=== PATIENT | male | born 1950 | race Caucasian/White ===

== ENCOUNTER 2016-03-20 14:46 | Inpatient (IN) | payer MEDICARE ==
[~2016-03-20] VITALS: Ht 160 cm; Wt 47.3 kg
[~2016-03-20 14:46] MED LIST: ALBU0.63 NEB; ASPI-482 PO; ATOR10TA60 PO; DOCU-27 PO; GLIM2TAB2 PO; HYDR-2666 PO; METF10002 PO
--- NOTE | 2016-03-20 18:01 | PHYS DOC ---
Past Medical History Past Medical History: Cancer, CVA, Diabetes-Type II Additional Past Medical Histor: L lung mass, 1 card stent, prostate CA, sepsis Past Surgical History: Cancer Surgery, Cholecystectomy, Other Additional Past Surgical Histo: prostate Alcohol Use: None Drug Use: None Adult General Chief Complaint Chief Complaint: SHORTNESS OF BREATH HPI HPI Patient is a 65 year old with left lung cancer presents complaining of increasing shortness of breath for 3 days, generalized weakness, dizziness/ lightheadedness, and dehydration. He has been experiencing failure to thrive for weeks. He is not eating or drinking much, and frequently has to go in for outpatient visits for IV fluids. He has been losing weight as well. He reports a nonproductive cough. He denies fever. He has intermittent left- sided chest pains which she attributes to the lung mass. These have been going on for a while now. He denies abdominal pain, vomiting, diarrhea, bloody stools , or urinary complaints. No calf swelling or leg tenderness. Patient's last chemotherapy and radiation treatments were in late February 2016. Review of Systems Review of Systems Constitutional: Denies fever or chills. Reports generalized weakness and failure to thrive. Eyes: Denies change in visual acuity, redness, or eye pain HENT: Denies nasal congestion or sore throat Respiratory: Reports cough and shortness of breath. Cardiovascular: Denies chest pain currently. Has had intermittent left-sided chest pains for a while now due to his lung cancer. GI: Denies abdominal pain, nausea, vomiting, bloody stools or diarrhea : Denies dysuria or hematuria Musculoskeletal: Denies back pain or joint pain Integument: Denies rash or skin lesions Neurologic: Denies headache, focal weakness or sensory changes Current Medications Current Medications Current Medications Medications (Trade) Dose Ordered Sig/Abi Start Time Stop Time Status Last Admin Dose Admin Albuterol/ Ipratropium (Duoneb) 3 ml RTQID 03/20/16 20:00 03/21/16 19:59 UNV Ceftriaxone Sodium 1 gm/ Sodium Chloride 50 ml @ 100 mls/hr Q24H 03/21/16 20:00 Ceftriaxone Sodium (Rocephin 1gm Ivpb For Omni) 50 ml @ 100 mls/hr 1X ONCE 03/20/16 19:15 03/20/16 19:44 DC 03/20/16 19:15 100 MLS/HR Info (Do NOT chart on this entry -- for MONITORING) 1 each PRN DAILY PRN 03/20/16 19:30 03/22/16 19:29 Iohexol (Omnipaque 300 Mg/ml) 75 ml 1X ONCE 03/20/16 19:15 03/20/16 19:19 DC 03/20/16 19:22 75 ML Ondansetron HCl 4 mg 4 mg PRN Q8HRS PRN 03/20/16 20:00 03/21/16 19:59 UNV Sodium Chloride (Iv Sodium Chloride 0.9% 1000ml Bag) 1,000 ml @ 150 mls/hr Q6H40M 03/20/16 19:47 03/21/16 19:46 UNV Allergies Allergies Allergies Coded Allergies Type Severity Reaction Last Updated Verified I S O L A T I O N *CONTACT* Allergy Unknown 11/28/15 Yes No Known Medication Allergies Allergy Unknown 11/28/15 Yes Physical Exam Physical Exam Constitutional: Cachectic. No acute distress. Nontoxic appearance. HENT: Normocephalic, atraumatic, bilateral external ears normal, oropharynx moist, no oral exudates, nose normal. Eyes: PERRLA, EOMI, conjunctiva normal, no discharge. Neck: Normal range of motion, no tenderness, supple, no stridor. Cardiovascular:Heart rate regular rhythm, no murmur Lungs & Thorax: Mild crackles in the left mid and lower lung field. No wheezes. No respiratory distress. Abdomen: Bowel sounds normal, soft, no tenderness, no masses, no pulsatile masses. Skin: Warm, dry, no erythema, no rash. Back: No tenderness, no CVA tenderness. Extremities: No tenderness, no cyanosis, no clubbing, ROM intact, no edema. Neurologic: Alert and oriented X 3, normal motor function. Psychologic: Affect normal, judgement normal, mood normal. Current Patient Data Vital Signs Vital Signs Date Time Temp Pulse Resp B/P Pulse Ox O2 Delivery O2 Flow Rate FiO2 03/20/16 17:01 97.5 87 28 105/61 97 Room Air 97.5 Lab Values Laboratory Tests Test 03/20/16 17:40 03/20/16 19:15 White Blood Count 1.8x10^3/uL (4.0-11.0) *L Red Blood Count 2.49x10^6/uL (4.30-5.70) L Hemoglobin 7.5g/dL (13.0-17.5) L Hematocrit 22.9% (39.0-53.0) L Mean Corpuscular Volume 92fL (79-100) Mean Corpuscular Hemoglobin 30pg (25-35) Mean Corpuscular Hemoglobin Concent 33g/dL (31-37) Red Cell Distribution Width 21.9% (11.5-14.5) H Platelet Count 209x10^3/uL (140-400) Neutrophils (%) (Auto) 65% (31-73) Lymphocytes (%) (Auto) 11% (24-48) L Monocytes (%) (Auto) 15% (0-9) H Eosinophils (%) (Auto) 9% (0-3) H Basophils (%) (Auto) 1% (0-3) Neutrophils # (Auto) 1.2x10^3uL (1.8-7.7) L Lymphocytes # (Auto) 0.2x10^3/uL (1.0-4.8) L Monocytes # (Auto) 0.3x10^3/uL (0.0-1.1) Eosinophils # (Auto) 0.2x10^3/uL (0.0-0.7) Basophils # (Auto) 0.0x10^3/uL (0.0-0.2) Segmented Neutrophils % 58% (35-66) Band Neutrophils % 10% (0-9) H Lymphocytes % 12% (24-48) L Monocytes % 15% (0-10) H Eosinophils % 5% (0-5) Platelet Estimate Adequate (ADEQUATE) Prothrombin Time 14.7SEC (11.7-14.0) H Prothrombin Time INR 1.2 (0.8-1.1) H Sodium Level 135mmol/L (136-145) L Potassium Level 4.1mmol/L (3.5-5.1) Chloride Level 100mmol/L (98-107) Carbon Dioxide Level 28mmol/L (21-32) Anion Gap 7 (6-14) Blood Urea Nitrogen 17mg/dL (8-26) Creatinine 0.8mg/dL (0.7-1.3) Estimated GFR (Cockcroft-Gault) 96.4 BUN/Creatinine Ratio 21 (6-20) H Glucose Level 147mg/dL (70-99) H Calcium Level 8.7mg/dL (8.5-10.1) Total Bilirubin 0.9mg/dL (0.2-1.0) Aspartate Amino Transferase (AST) 60U/L (15-37) H Alanine Aminotransferase (ALT) 23U/L (16-63) Alkaline Phosphatase 268U/L (46-116) H Troponin I Quantitative < 0.017ng/mL (0.000-0.055) Total Protein 6.7g/dL (6.4-8.2) Albumin 2.0g/dL (3.4-5.0) L Albumin/Globulin Ratio 0.4 (1.0-1.7) L Urine Collection Type Unknown Urine Color Rina Urine Clarity Clear Urine pH 6.0 Urine Specific [place] >=1.030 Urine Protein Negativemg/dL (NEG-TRACE) Urine Glucose (UA) Negativemg/dL (NEG) Urine Ketones (Stick) 15mg/dL (NEG) Urine Blood Negative (NEG) Urine Nitrite Negative (NEG) Urine Bilirubin Small (NEG) Urine Urobilinogen Dipstick 2.0mg/dL (0.2 mg/dL) Urine Leukocyte Esterase Negative (NEG) Urine RBC 0/HPF (0-2) Urine WBC 0/HPF (0-4) Urine Bacteria 0/HPF (0-FEW) Urine Mucus Marked/LPF Laboratory Tests 03/20/16 17:40 Laboratory Tests 03/20/16 17:40 EKG EKG EKG: Sinus rhythm. Rate [address] segment changes. Normal axis and intervals. EKG interpreted by me. Radiology/Procedures Radiology/Procedures Chest x-ray, AP single view: Opacity noted in the left lower lung field, most likely represents known tumor mass. There is some surrounding haziness around this mass. No effusion. No obvious focal infiltrate. No pneumothorax. Normal heart and mediastinum. X-ray interpreted by me. Course & Med Decision Making Course & Med Decision Making Pertinent Labs and Imaging studies reviewed. (See chart for details) Patient presents with weight loss, failure to thrive, and shortness of breath. He was found to be hypoxic on room air at around 90%. This is a new finding. He has some crackles in the left base near where his lung masses. Last chemotherapy and radiation were in late February. X-ray shows a smaller left lung mass than prior, with some surrounding groundglass appearance. This is probably inflammatory changes secondary to radiation. I do not see any obvious focal infiltrate or effusion. I did cover the patient with IV Rocephin to be on the safe side, as his blood pressures are running on the low side. I think this is more likely due to dehydration. Lactate level is pending. He is not tachycardic or febrile. White blood cell count is 1.8, most likely secondary to chemotherapy. Globus 7.5. Rest his exam is fairly unremarkable. EKG is nonischemic and troponin is negative. I discussed this case with Dr. Hammond who agreed to admit the patient for further management. I ordered 2 L of IV fluids to be bolused, and we will keep him on maintenance fluids overnight. I ordered a CTA of the chest to rule out pulmonary embolism. The admitting physician will follow up on these results. Dragon Disclaimer Dragon Disclaimer This electronic medical record was generated, in whole or in part, using a voice recognition dictation system. Departure Departure Impression: Primary Impression: Acute respiratory failure with hypoxia Additional Impressions: Failure to thrive Dehydration Disposition: ADMITTED INPATIENT Admitting Physician: Other Condition: STABLE Referrals: IVORY HER MD (PCP) Problem Qualifiers Additional Impressions: Failure to thrive Failure to thrive age range: in adult Qualified Code: R62.7 - Adult failure to thrive AGUSTIN HOPSON MD Mar 20, 2016 17:46
[2016-03-20 18:12] LABS: BASO % 1 % (0-3); EOS % 9 % (0-3); HEMATOCRIT 22.9 % (39.0-53.0); HEMOGLOBIN 7.5 g/dL (13.0-17.5); LYMPH # 0.2 x10^3/uL (1.0-4.8); LYMPH % 11 % (24-48); MEAN CORPUSCULAR HEMOGLOBIN 30 pg (25-35); MEAN CORPUSCULAR HGB CONC 33 g/dL (31-37); MEAN CORPUSCULAR VOLUME 92 fL (79-100); MONO % 15 % (0-9); NEUT % 65 % (31-73); PLATELET COUNT 209 x10^3/uL (140-400); RED BLOOD COUNT 2.49 x10^6/uL (4.30-5.70); RED CELL DISTRIBUTION WIDTH 21.9 % (11.5-14.5)
[2016-03-20 18:15] LABS: WHITE BLOOD COUNT 1.8 x10^3/uL (4.0-11.0)
[2016-03-20 18:18] LABS: CALCIUM 8.7 mg/dL (8.5-10.1); CREATININE 0.8 mg/dL (0.7-1.3); GFR 96.4; POTASSIUM 4.1 mmol/L (3.5-5.1)
[2016-03-20 18:21] LABS: ALBUMIN/GLOBULIN RATIO 0.4 (1.0-1.7); TOTAL BILIRUBIN 0.9 mg/dL (0.2-1.0); TOTAL PROTEIN 6.7 g/dL (6.4-8.2)
[2016-03-20 18:37] LABS: INR 1.2 (0.8-1.1); PROTHROMBIN TIME PATIENT 14.7 SEC (11.7-14.0)
[2016-03-20 18:52] LABS: % EOS 5 % (0-5)
[2016-03-20 18:53] LABS: PLT ESTIMATE ADEQUATE (ADEQUATE)
[2016-03-20] MEDS ORDERED: IOHEXOL 300 MG/ML 75 ML VIAL IV ONE (19:15)
[2016-03-20] MEDS ORDERED: IV NORMAL SALINE 1000ML BAG 1,000 ML IV ONE (19:15)
[2016-03-20] MEDS ORDERED: CEFTRIAXONE 1GM IVPB FOR OMNI 50 ML IV ONE (19:15)
[2016-03-20 19:28] LABS: BILIRUBIN,URINE SMALL (NEG); GLUCOSE,URINE NEGATIVE (NEG); NITRITE,URINE NEGATIVE (NEG); PROTEIN,URINE NEGATIVE (NEG-TRACE)
[2016-03-20] MEDS ORDERED: CONTRAST GIVEN MC PRN (19:30)
[2016-03-20 19:40] LABS: BACTERIA,URINE 0 /HPF (0-FEW); RBC,URINE 0 /HPF (0-2); WBC,URINE 0 /HPF (0-4)
--- NOTE | 2016-03-20 19:48 | RAD ---
PROCEDURE CT angiogram of the chest with intravenous contrast. HISTORY Shortness of air and weakness. History of lung cancer. TECHNIQUE After administration of intravenous contrast, 75 mL Omnipaque 300 , CT pulmonary angiogram was performed. Axial 2D reconstructions were obtained. Coronal 3D MIPS were obtained. Exposure: One or more of the following individualized dose reduction techniques were utilized for this examination: 1. Automated exposure control. 2. Adjustment of the mA and/or kV according to patient size. 3. Use of iterative reconstruction technique. COMPARISON CT chest September 06, 2015. FINDINGS There is adequate opacification of pulmonary arteries. There is no evidence of pulmonary embolism. Thyroid is symmetric. Trachea and mainstem bronchi appear patent. Borderline subcarinal lymph node is seen measuring 1.1 centimeters. Right hilar lymph node measures 1.1 centimeters in short axis. The left upper lobe demonstrates a residual irregular mass measuring about 5 centimeters in maximum dimension (previously about 7 centimeters in maximum dimension). Thoracic aortic atherosclerosis is seen. Small-moderate hiatal hernia is present. There is a inferior paraesophageal posterior mediastinal lymph node which measures 1.0 centimeters in short axis. Emphysematous changes of the lungs are present. There is interval development of a large amount of ground-glass opacity and septal thickening involving the left lung with lesser amount involving the medial right lung. No pneumothorax identified. Peripherally calcified nodule measuring 10 millimeters is again seen in the right lower lobe. Images of the upper abdomen demonstrate ramifying gas density involving the liver. It is difficult to assess if this represents of pneumobilia versus portal venous gas as the portal vein is not well seen. The common bile duct is markedly dilated measuring about 2 centimeters. IMPRESSION 1. No evidence of pulmonary embolism. 2. Interval development of a large amount of ground-glass opacity involving the left lung with mild amount involving the right lung. This finding is nonspecific, could represent pulmonary edema versus lymphangitic carcinomatosis. 3. Interval reduction of left upper lobe pulmonary mass. 4. Mild mediastinal lymphadenopathy. 5. Mild-moderate hiatal hernia. 6. Severe dilatation of the common bile duct. Ramifying gas density is seen involving the liver, although it is uncertain if this represents pneumobilia (such as from previous sphincterotomy) versus portal venous gas which would be abnormal. Recommend clinical correlation with history. Electronically signed by: Garrett Greco MD (Mar 20, 2016 19:47:08)
[2016-03-20] MEDS: IPRATRPIUM/ALBUTEROL 0.5/2.5MG 3 ML NEBU. NEB SCH (19:55)
[2016-03-20] MEDS ORDERED: IPRATRPIUM/ALBUTEROL 0.5/2.5MG 3 ML NEBU. NEB ONE (20:00)
[2016-03-20] MEDS ORDERED: ONDANSETRON PF 4 MG/2 ML VIAL. IV PRN (20:00)
[2016-03-20] MEDS ORDERED: HYDROCODONE/APAP 5/325MG TABLET. PO PRN (22:30)
[2016-03-20] MEDS: IV NORMAL SALINE 1000ML BAG 1,000 ML IV SCH (22:58)
[2016-03-20 23:00] VITALS: BP 94/52
--- NOTE | 2016-03-20 23:32 | ACF ---
Admission Forms Criteria RESPIRATORY FAILURE [facility] Clinical Indications for Admission to Inpatient Care (Place 'X' for any and all applicable criteria): Hospital admission is needed for appropriate care of the patient because of acute respiratory failure or insufficiency as indicated by ANY ONE of the following(1)(2)(3)(4)(5)(6)(7)(8): [ ]I. Mechanical ventilation needed (acute invasive or noninvasive) [ ]II. Severe ventilation deficit as indicated by ANY ONE of the following (9) [ ]a) Respiratory acidosis (pH less than 7.32 and partial pressure of carbon dioxide greater than 40 mm Hg (5.3 kPa)) [ ]b) Partial pressure of carbon dioxide greater than 44 mm Hg (5.9 kPa ) (new) [ ]c) Airflow measurements less than 25% of predicted (eg, peak expiratory flow rate less than 100 L/minute) [ ]d) Forced vital capacity less than 15 mL/kg of ideal body weight, or 50% decrease in vital capacity from baseline [ ]III. Noncardiac pulmonary edema not resolving with rapid emergency treatment (8) [X]IV. Severe respiratory distress as indicated by ANY ONE of the following: [X]a) Severe tachypnea (respiratory rate greater than 30, greater than 45 for 6-month-old, greater than 60 for ) [ ]b) Severe hypoxemia (partial pressure of oxygen less than 50 mm Hg ( 6.7 kPa) on greater than 50% oxygen or partial pressure of oxygen to FIO2 ratio less than 200) [ ]c) Mental status deterioration from respiratory disease [ ]V. Airway obstruction or inadequate protection [A](10)(11) The original [employer] content created by [employer] has been revised. The portions of the content which have been revised are identified through the use of italic text or in bold, and [employer] has neither reviewed nor approved the modified material. All other unmodified content is copyright [employer]. Please see references footnoted in the original [employer] edition 2016 Admission Criteria Met?: Yes DEVYN MENDOZA Mar 20, 2016 23:32
[2016-03-20] MEDS ORDERED: DEXTROSE 50% 25 GM / 50ML DISP.SYRIN. IV PRN (23:45)
[2016-03-21] VITALS (11 sets, daily range): BP systolic 89–115; BP diastolic 51–66
--- NOTE | 2016-03-21 05:10 | HP ---
ADMIT DATE: 03/20/2016 CHIEF COMPLAINT: Shortness of breath and failure to thrive. HISTORY OF PRESENT ILLNESS: The patient is a 65-year-old gentleman who has been diagnosed with nonsmall cell lung carcinoma earlier this year, which was treated up until February with concurrent chemoradiation. He has now completed. He is unfortunately not well versed in his disease, but believes he is a stage IV, and is receiving palliative chemotherapy under the care of Dr. Mckeon. He relates that he actually had been in to see Dr. Mckeon for blood checks earlier today and was advised to come to the hospital for further workup. It is somewhat unclear to me as he was sent by Dr. Mckeon or by the insistence of his multiple daughters, sisters and . On further questioning, he relates that he has increased shortness of breath for the past 3 days, not accompanied by any chest pain or palpitation. He does admit to generalized weakness, has lost a significant amount of weight over the past few months. His appetite is extremely poor. He has early satiety, does admit to lightheadedness and occasional dizziness. He denies any fever or nausea or vomiting or diarrhea. PAST MEDICAL HISTORY: Nonsmall cell lung carcinoma as above, CAD status post stent, CVA, diabetes type 2, history of prostate cancer, cholecystectomy. FAMILY HISTORY: Noncontributory. SOCIAL HISTORY: Lives with his . Quit smoking in July of last year. No toxic habits ongoing. ALLERGIES: No known drug allergies. MEDICATIONS: MAR reconciled with home medications. REVIEW OF SYSTEMS: Essentially positive as per HPI with a slowly progressive deterioration and failure to thrive and associated symptoms. PHYSICAL EXAMINATION: VITAL SIGNS: From today show a blood pressure of 94/52, heart rate of 101, respiratory rate at 18. He is afebrile. GENERAL: This is a malnourished 65-year-old gentleman, alert and oriented, in no acute distress and seems somewhat confused and tangential in his answers. HEENT: Shows no scleral icterus. Oral mucosa is pink and moist. NECK: Supple. LUNGS: Show rales in the left mid field in the radiation port, right lung is clear. CARDIOVASCULAR: Has regular rate and rhythm. ABDOMEN: Positive bowel sounds, soft, cachectic. EXTREMITIES: Show trace edema. LABORATORY DATA: CBC with a WBC of 1.8, hemoglobin 7.5, platelets of 209. Differential is essentially normal with slightly elevated monocytes. Chemistries with a BUN and creatinine of 17 and 0.8, normal electrolytes. AST at 68, ALT at 268, albumin at 2.0. Urine is negative for any infectious symptoms. IMAGING: Chest x-ray obtained unavailable. CTA obtained shows no evidence of pulmonary embolism, large amount of ground glass opacity involving the left lung with mild amount involving the right lung. I suspect these are radiation changes, interval reduction of left upper lobe pulmonary mass, positive mediastinal lymphadenopathy and [id number] hiatal hernia. Also noted is severe dilation of the common bile duct, possibly secondary to ERCP versus portal venous gas. ASSESSMENT AND PLAN: The patient is a 65-year-old gentleman with nonsmall cell lung carcinoma stage IV, status post treatment with radiation and chemotherapy. Now presents with failure to thrive. Question is if this is secondary to cancer and potential treatment, which test was completed recently. This also may be related to various GI issues including a hiatal hernia as well as history of complicated cholecystectomy earlier this year. We will try to determine if this symptomatically. Breathing issue may be a mild chronic obstructive pulmonary disease. Cannot rule out radiation pneumonitis. He currently actually denies any shortness of breath. We will obtain a pulmonary consult tomorrow. Failure to thrive. It will be difficult to treat given his poor appetite. We will start Megace to try and increase his appetite. This does confer a higher risk of blood clotting especially in case of concurrent cancer. We will offset with Lovenox prophylactic doses. Pneumobilia observed on CAT scan is most likely related to ERCP three months ago, followed by cholecystectomy. No indications of fever or focal symptoms noted. For his diabetes, we will continue home medications. We will check insulin with sliding scale to manage. The patient is rather tearful and relates that he has been diagnosed by Dr. Fofana with depression has been started on a medication. This unfortunately is not on his current medication list. We will start him on Zoloft here. In discussion, the patient voices his wishes for DNR. We will accommodate. With the overall picture rather poor, we will obtain Palliative Care consult to discuss further treatment and intended aggressiveness. DOM GONZALEZ MD DR: Carlos A JOB#: [id number] / [id number] IVORY Herring MDD
[2016-03-21] MEDS: IV NORMAL SALINE 1000ML BAG 1,000 ML IV SCH ×3 (05:23→20:59)
[2016-03-21] MEDS: HYDROCODONE/APAP 5/325MG TABLET. PO PRN ×2 (05:24→20:59)
[2016-03-21 05:48] LABS: BASO % 1 % (0-3); EOS % 11 % (0-3); HEMATOCRIT 21.2 % (39.0-53.0); LYMPH # 0.1 x10^3/uL (1.0-4.8); LYMPH % 9 % (24-48); MEAN CORPUSCULAR HEMOGLOBIN 30 pg (25-35); MEAN CORPUSCULAR HGB CONC 33 g/dL (31-37); MEAN CORPUSCULAR VOLUME 91 fL (79-100); MONO % 15 % (0-9); NEUT % 65 % (31-73); PLATELET COUNT 186 x10^3/uL (140-400); RED BLOOD COUNT 2.33 x10^6/uL (4.30-5.70); RED CELL DISTRIBUTION WIDTH 21.9 % (11.5-14.5)
[2016-03-21 05:54] LABS: WHITE BLOOD COUNT 1.5 x10^3/uL (4.0-11.0)
[2016-03-21 05:55] LABS: ALBUMIN 1.6 g/dL (3.4-5.0); ALBUMIN/GLOBULIN RATIO 0.4 (1.0-1.7); CREATININE 0.6 mg/dL (0.7-1.3); GFR 134.4; POTASSIUM 3.6 mmol/L (3.5-5.1); TOTAL BILIRUBIN 0.4 mg/dL (0.2-1.0); TOTAL PROTEIN 5.4 g/dL (6.4-8.2)
--- NOTE | 2016-03-21 06:54 | EKG ---
[facility] [address] [place] [id number] Test Date: 2016-03-20 Test Time: 17:54:46 Pat Name: HERIBERTO SUAREZ Department: Room: 512 1 Gender: M Train Director: : 1950 Requested By: AGUSTIN HOPSON Order Number: [id number] Reading MD: Clarice Granger Measurements Intervals [place] Rate: 86 P: 31 HI: 182 QRS: 69 QRSD: 84 T: 61 QT: 392 QTc: 472 Interpretive Statements SINUS RHYTHM LOW LIMB LEAD VOLTAGE QRS(T) CONTOUR ABNORMALITY CONSISTENT WITH ANTEROSEPTAL INFARCT PROBABLY OLD ABNORMAL ECG RI6.01 No previous ECG available for comparison Electronically Signed On 03-23-2016 0:22:46 [employer] by Clarice Granger
[2016-03-21] MEDS: IPRATRPIUM/ALBUTEROL 0.5/2.5MG 3 ML NEBU. NEB SCH ×3 (07:51→15:48)
[2016-03-21] MEDS: INSULIN ASPART 300 UNITS/3 ML INSULN.PEN SQ SCH ×3 (08:00→17:00)
[2016-03-21] MEDS: ALBUTEROL SULFATE 2.5 MG/3 ML NEBU. NEB SCH ×4 (08:00→19:01)
--- NOTE | 2016-03-21 08:28 | RAD ---
Portable chest, 03/20/2016: History: Shortness of breath Comparison is made to a study from 11/02/2015. The heart is within normal limits in size. There is calcific plaquing of aorta. The left midlung pulmonary mass has decreased markedly in size suggesting a favorable response to therapy. Reticulonodular pulmonary infiltrates have developed in the surrounding left lung. There is mild volume loss on the left. No right lung consolidation is seen. There is no evidence of pleural fluid or pneumothorax. IMPRESSION: 1. Interval decrease in size of the left pulmonary mass in this patient with a history of lung cancer. 2. Reticulonodular pulmonary opacities have developed in the left lung with diagnostic considerations including pneumonia on a post radiation or infectious basis, or lymphangitic tumor spread.
[2016-03-21] MEDS ORDERED: NON FORMULARY ITEM (Albuterol Sulfate (Albuterol Sulfate Neb Soln) 1 VIAL) NEB SCH (09:00)
[2016-03-21] MEDS ORDERED: METFORMIN 1,000 MG TABLET PO SCH (09:00)
[2016-03-21] MEDS: GLIMEPIRIDE 2 MG TABLET PO SCH (10:41)
[2016-03-21] MEDS: MEGESTROL 400 MG/10 ML ORAL.SUSP. PO SCH ×2 (10:41→20:59)
[2016-03-21] MEDS: ASPIRIN ENTERIC COATED 81 MG TABLET.DR. PO SCH (10:41)
--- NOTE | 2016-03-21 11:24 | PDOC ---
PROGRESS NOTES Chief Complaint Chief Complaint Pancytopenia FTT ASSESSMENT AND PLAN: 1. Neutropenia: worsening. start GCSF. actually has not has any chemo since before ... 2. Anemia: acute on chronic with chemo induced BM toxicity and chronic inflammation. transfuse PRBC x1 today 3. FTT: added Megace to regimen 4. weakness: OT/PT eval 5. Protein/calorie malnutrition: severe. protein supplements 6. NSCLC stage 4: difficulties with tolerating chemo. benefit of treatment have to be weighed with accelerated FTT. 7. End of Life: palliative care consult. d/w him and family that under current circumstances, chemo is not possible (low counts, FTT). life expectancy is measured more in months than years (he believes he has 1-2 years) . advised with current status, 2 months would be more appropriate. He would have to have to be instrumental in changing his eating habits and activity level to improve that 8. Prophylaxis: lovenox Vitals Vitals Vital Signs Date Time Temp Pulse Resp B/P Pulse Ox O2 Delivery O2 Flow Rate FiO2 03/21/16 11:14 Nasal Cannula 2.0 03/21/16 07:51 93 03/21/16 07:00 97.5 95 19 89/51 97.5 Physical Exam General: Alert, Cooperative, No acute distress Heart: Regular rate Lungs: Clear, Other Abdomen: Normal bowel sounds, No tenderness Extremities: No edema Skin: No rashes Labs LABS Laboratory Tests Test 03/20/16 17:40 03/20/16 19:15 03/20/16 19:53 03/21/16 04:00 White Blood Count 1.8x10^3/uL (4.0-11.0) 1.5x10^3/uL (4.0-11.0) Red Blood Count 2.49x10^6/uL (4.30-5.70) 2.33x10^6/uL (4.30-5.70) Hemoglobin 7.5g/dL (13.0-17.5) 7.0g/dL (13.0-17.5) Hematocrit 22.9% (39.0-53.0) 21.2% (39.0-53.0) Mean Corpuscular Volume 92fL (79-100) 91fL (79-100) Mean Corpuscular Hemoglobin 30pg (25-35) 30pg (25-35) Mean Corpuscular Hemoglobin Concent 33g/dL (31-37) 33g/dL (31-37) Red Cell Distribution Width 21.9% (11.5-14.5) 21.9% (11.5-14.5) Platelet Count 209x10^3/uL (140-400) 186x10^3/uL (140-400) Neutrophils (%) (Auto) 65% (31-73) 65% (31-73) Lymphocytes (%) (Auto) 11% (24-48) 9% (24-48) Monocytes (%) (Auto) 15% (0-9) 15% (0-9) Eosinophils (%) (Auto) 9% (0-3) 11% (0-3) Basophils (%) (Auto) 1% (0-3) 1% (0-3) Neutrophils # (Auto) 1.2x10^3uL (1.8-7.7) 1.0x10^3uL (1.8-7.7) Lymphocytes # (Auto) 0.2x10^3/uL (1.0-4.8) 0.1x10^3/uL (1.0-4.8) Monocytes # (Auto) 0.3x10^3/uL (0.0-1.1) 0.2x10^3/uL (0.0-1.1) Eosinophils # (Auto) 0.2x10^3/uL (0.0-0.7) 0.2x10^3/uL (0.0-0.7) Basophils # (Auto) 0.0x10^3/uL (0.0-0.2) 0.0x10^3/uL (0.0-0.2) Segmented Neutrophils % 58% (35-66) Band Neutrophils % 10% (0-9) Lymphocytes % 12% (24-48) Monocytes % 15% (0-10) Eosinophils % 5% (0-5) Platelet Estimate Adequate (ADEQUATE) Prothrombin Time 14.7SEC (11.7-14.0) Prothromb Time International Ratio 1.2 (0.8-1.1) Sodium Level 135mmol/L (136-145) 137mmol/L (136-145) Potassium Level 4.1mmol/L (3.5-5.1) 3.6mmol/L (3.5-5.1) Chloride Level 100mmol/L (98-107) 103mmol/L (98-107) Carbon Dioxide Level 28mmol/L (21-32) 27mmol/L (21-32) Anion Gap 7 (6-14) 7 (6-14) Blood Urea Nitrogen 17mg/dL (8-26) 12mg/dL (8-26) Creatinine 0.8mg/dL (0.7-1.3) 0.6mg/dL (0.7-1.3) Estimated GFR (Cockcroft-Gault) 96.4 134.4 BUN/Creatinine Ratio 21 (6-20) 20 (6-20) Glucose Level 147mg/dL (70-99) 169mg/dL (70-99) Calcium Level 8.7mg/dL (8.5-10.1) 8.0mg/dL (8.5-10.1) Total Bilirubin 0.9mg/dL (0.2-1.0) 0.4mg/dL (0.2-1.0) Aspartate Amino Transf (AST/SGOT) 60U/L (15-37) 30U/L (15-37) Alanine Aminotransferase (ALT/SGPT) 23U/L (16-63) 23U/L (16-63) Alkaline Phosphatase 268U/L (46-116) 194U/L (46-116) Troponin I Quantitative < 0.017ng/mL (0.000-0.055) Total Protein 6.7g/dL (6.4-8.2) 5.4g/dL (6.4-8.2) Albumin 2.0g/dL (3.4-5.0) 1.6g/dL (3.4-5.0) Albumin/Globulin Ratio 0.4 (1.0-1.7) 0.4 (1.0-1.7) Urine Collection Type Unknown Urine Color Rina Urine Clarity Clear Urine pH 6.0 Urine Specific [place] >=1.030 Urine Protein Negativemg/dL (NEG-TRACE) Urine Glucose (UA) Negativemg/dL (NEG) Urine Ketones (Stick) 15mg/dL (NEG) Urine Blood Negative (NEG) Urine Nitrite Negative (NEG) Urine Bilirubin Small (NEG) Urine Urobilinogen Dipstick 2.0mg/dL (0.2 mg/dL) Urine Leukocyte Esterase Negative (NEG) Urine RBC 0/HPF (0-2) Urine WBC 0/HPF (0-4) Urine Bacteria 0/HPF (0-FEW) Urine Mucus Marked/LPF Lactic Acid Level 0.8mmol/L (0.4-2.0) Test 03/21/16 07:57 Glucose (Fingerstick) 139mg/dL (70-99) Review of Systems Review of Systems feels better today. family visiting Comment Review of Relevant I have reviewed the following items liz (where applicable) has been applied. Labs Laboratory Tests Test 03/20/16 17:40 03/20/16 19:15 03/20/16 19:53 03/21/16 04:00 White Blood Count 1.8x10^3/uL (4.0-11.0) 1.5x10^3/uL (4.0-11.0) Red Blood Count 2.49x10^6/uL (4.30-5.70) 2.33x10^6/uL (4.30-5.70) Hemoglobin 7.5g/dL (13.0-17.5) 7.0g/dL (13.0-17.5) Hematocrit 22.9% (39.0-53.0) 21.2% (39.0-53.0) Mean Corpuscular Volume 92fL (79-100) 91fL (79-100) Mean Corpuscular Hemoglobin 30pg (25-35) 30pg (25-35) Mean Corpuscular Hemoglobin Concent 33g/dL (31-37) 33g/dL (31-37) Red Cell Distribution Width 21.9% (11.5-14.5) 21.9% (11.5-14.5) Platelet Count 209x10^3/uL (140-400) 186x10^3/uL (140-400) Neutrophils (%) (Auto) 65% (31-73) 65% (31-73) Lymphocytes (%) (Auto) 11% (24-48) 9% (24-48) Monocytes (%) (Auto) 15% (0-9) 15% (0-9) Eosinophils (%) (Auto) 9% (0-3) 11% (0-3) Basophils (%) (Auto) 1% (0-3) 1% (0-3) Neutrophils # (Auto) 1.2x10^3uL (1.8-7.7) 1.0x10^3uL (1.8-7.7) Lymphocytes # (Auto) 0.2x10^3/uL (1.0-4.8) 0.1x10^3/uL (1.0-4.8) Monocytes # (Auto) 0.3x10^3/uL (0.0-1.1) 0.2x10^3/uL (0.0-1.1) Eosinophils # (Auto) 0.2x10^3/uL (0.0-0.7) 0.2x10^3/uL (0.0-0.7) Basophils # (Auto) 0.0x10^3/uL (0.0-0.2) 0.0x10^3/uL (0.0-0.2) Segmented Neutrophils % 58% (35-66) Band Neutrophils % 10% (0-9) Lymphocytes % 12% (24-48) Monocytes % 15% (0-10) Eosinophils % 5% (0-5) Platelet Estimate Adequate (ADEQUATE) Prothrombin Time 14.7SEC (11.7-14.0) Prothromb Time International Ratio 1.2 (0.8-1.1) Sodium Level 135mmol/L (136-145) 137mmol/L (136-145) Potassium Level 4.1mmol/L (3.5-5.1) 3.6mmol/L (3.5-5.1) Chloride Level 100mmol/L (98-107) 103mmol/L (98-107) Carbon Dioxide Level 28mmol/L (21-32) 27mmol/L (21-32) Anion Gap 7 (6-14) 7 (6-14) Blood Urea Nitrogen 17mg/dL (8-26) 12mg/dL (8-26) Creatinine 0.8mg/dL (0.7-1.3) 0.6mg/dL (0.7-1.3) Estimated GFR (Cockcroft-Gault) 96.4 134.4 BUN/Creatinine Ratio 21 (6-20) 20 (6-20) Glucose Level 147mg/dL (70-99) 169mg/dL (70-99) Calcium Level 8.7mg/dL (8.5-10.1) 8.0mg/dL (8.5-10.1) Total Bilirubin 0.9mg/dL (0.2-1.0) 0.4mg/dL (0.2-1.0) Aspartate Amino Transf (AST/SGOT) 60U/L (15-37) 30U/L (15-37) Alanine Aminotransferase (ALT/SGPT) 23U/L (16-63) 23U/L (16-63) Alkaline Phosphatase 268U/L (46-116) 194U/L (46-116) Troponin I Quantitative < 0.017ng/mL (0.000-0.055) Total Protein 6.7g/dL (6.4-8.2) 5.4g/dL (6.4-8.2) Albumin 2.0g/dL (3.4-5.0) 1.6g/dL (3.4-5.0) Albumin/Globulin Ratio 0.4 (1.0-1.7) 0.4 (1.0-1.7) Urine Collection Type Unknown Urine Color Rina Urine Clarity Clear Urine pH 6.0 Urine Specific [place] >=1.030 Urine Protein Negativemg/dL (NEG-TRACE) Urine Glucose (UA) Negativemg/dL (NEG) Urine Ketones (Stick) 15mg/dL (NEG) Urine Blood Negative (NEG) Urine Nitrite Negative (NEG) Urine Bilirubin Small (NEG) Urine Urobilinogen Dipstick 2.0mg/dL (0.2 mg/dL) Urine Leukocyte Esterase Negative (NEG) Urine RBC 0/HPF (0-2) Urine WBC 0/HPF (0-4) Urine Bacteria 0/HPF (0-FEW) Urine Mucus Marked/LPF Lactic Acid Level 0.8mmol/L (0.4-2.0) Test 03/21/16 07:57 Glucose (Fingerstick) 139mg/dL (70-99) Laboratory Tests Test 03/20/16 17:40 03/20/16 19:15 03/20/16 19:53 03/21/16 04:00 White Blood Count 1.8x10^3/uL (4.0-11.0) 1.5x10^3/uL (4.0-11.0) Red Blood Count 2.49x10^6/uL (4.30-5.70) 2.33x10^6/uL (4.30-5.70) Hemoglobin 7.5g/dL (13.0-17.5) 7.0g/dL (13.0-17.5) Hematocrit 22.9% (39.0-53.0) 21.2% (39.0-53.0) Mean Corpuscular Volume 92fL (79-100) 91fL (79-100) Mean Corpuscular Hemoglobin 30pg (25-35) 30pg (25-35) Mean Corpuscular Hemoglobin Concent 33g/dL (31-37) 33g/dL (31-37) Red Cell Distribution Width 21.9% (11.5-14.5) 21.9% (11.5-14.5) Platelet Count 209x10^3/uL (140-400) 186x10^3/uL (140-400) Neutrophils (%) (Auto) 65% (31-73) 65% (31-73) Lymphocytes (%) (Auto) 11% (24-48) 9% (24-48) Monocytes (%) (Auto) 15% (0-9) 15% (0-9) Eosinophils (%) (Auto) 9% (0-3) 11% (0-3) Basophils (%) (Auto) 1% (0-3) 1% (0-3) Neutrophils # (Auto) 1.2x10^3uL (1.8-7.7) 1.0x10^3uL (1.8-7.7) Lymphocytes # (Auto) 0.2x10^3/uL (1.0-4.8) 0.1x10^3/uL (1.0-4.8) Monocytes # (Auto) 0.3x10^3/uL (0.0-1.1) 0.2x10^3/uL (0.0-1.1) Eosinophils # (Auto) 0.2x10^3/uL (0.0-0.7) 0.2x10^3/uL (0.0-0.7) Basophils # (Auto) 0.0x10^3/uL (0.0-0.2) 0.0x10^3/uL (0.0-0.2) Segmented Neutrophils % 58% (35-66) Band Neutrophils % 10% (0-9) Lymphocytes % 12% (24-48) Monocytes % 15% (0-10) Eosinophils % 5% (0-5) Platelet Estimate Adequate (ADEQUATE) Prothrombin Time 14.7SEC (11.7-14.0) Prothromb Time International Ratio 1.2 (0.8-1.1) Sodium Level 135mmol/L (136-145) 137mmol/L (136-145) Potassium Level 4.1mmol/L (3.5-5.1) 3.6mmol/L (3.5-5.1) Chloride Level 100mmol/L (98-107) 103mmol/L (98-107) Carbon Dioxide Level 28mmol/L (21-32) 27mmol/L (21-32) Anion Gap 7 (6-14) 7 (6-14) Blood Urea Nitrogen 17mg/dL (8-26) 12mg/dL (8-26) Creatinine 0.8mg/dL (0.7-1.3) 0.6mg/dL (0.7-1.3) Estimated GFR (Cockcroft-Gault) 96.4 134.4 BUN/Creatinine Ratio 21 (6-20) 20 (6-20) Glucose Level 147mg/dL (70-99) 169mg/dL (70-99) Calcium Level 8.7mg/dL (8.5-10.1) 8.0mg/dL (8.5-10.1) Total Bilirubin 0.9mg/dL (0.2-1.0) 0.4mg/dL (0.2-1.0) Aspartate Amino Transf (AST/SGOT) 60U/L (15-37) 30U/L (15-37) Alanine Aminotransferase (ALT/SGPT) 23U/L (16-63) 23U/L (16-63) Alkaline Phosphatase 268U/L (46-116) 194U/L (46-116) Troponin I Quantitative < 0.017ng/mL (0.000-0.055) Total Protein 6.7g/dL (6.4-8.2) 5.4g/dL (6.4-8.2) Albumin 2.0g/dL (3.4-5.0) 1.6g/dL (3.4-5.0) Albumin/Globulin Ratio 0.4 (1.0-1.7) 0.4 (1.0-1.7) Urine Collection Type Unknown Urine Color Rina Urine Clarity Clear Urine pH 6.0 Urine Specific [place] >=1.030 Urine Protein Negativemg/dL (NEG-TRACE) Urine Glucose (UA) Negativemg/dL (NEG) Urine Ketones (Stick) 15mg/dL (NEG) Urine Blood Negative (NEG) Urine Nitrite Negative (NEG) Urine Bilirubin Small (NEG) Urine Urobilinogen Dipstick 2.0mg/dL (0.2 mg/dL) Urine Leukocyte Esterase Negative (NEG) Urine RBC 0/HPF (0-2) Urine WBC 0/HPF (0-4) Urine Bacteria 0/HPF (0-FEW) Urine Mucus Marked/LPF Lactic Acid Level 0.8mmol/L (0.4-2.0) Test 03/21/16 07:57 Glucose (Fingerstick) 139mg/dL (70-99) Medications Current Medications Ceftriaxone Sodium 1 gm/ Sodium Chloride 50 ml @ 100 mls/hr Q24H IV ; Start at 20:00 Sodium Chloride 1,000 ml @ 1,000 mls/hr 1X ONCE IV Last administered on 19:14; Start 03/20/16 at 19:15; Stop 03/20/16 at 20:14; Status DC Ceftriaxone Sodium (Rocephin 1gm Ivpb For Omni) 50 ml @ 100 mls/hr 1X ONCE IV Last administered on 03/20/16 19:15; Start 03/20/16 at 19:15; Stop 03/20/16 at 19:44; Status DC Iohexol (Omnipaque 300 Mg/ml) 75 ml 1X ONCE IV Last administered on 03/20/16 19:22; Start 03/20/16 at 19:15; Stop 03/20/16 at 19:19; Status DC Info (Do NOT chart on this entry -- for MONITORING) 1 each PRN DAILY PRN MC SEE COMMENTS; Start 03/20/16 at 19:30; Stop 03/22/16 at 19:29 Albuterol/ Ipratropium (Duoneb) 3 ml 1X ONCE NEB Last administered on 19:55; Start 03/20/16 at 20:00; Stop 03/20/16 at 20:01; Status DC Ondansetron HCl 4 mg 4 mg PRN Q8HRS PRN IV NAUSEA/VOMITING; Start 03/20/16 at 20:00; Stop 03/21/16 at 19:59 Sodium Chloride (Iv Sodium Chloride 0.9% 1000ml Bag) 1,000 ml @ 150 mls/hr Q6H40M IV Last administered on 03/21/16 05:23; Start 03/20/16 at 19:47; Stop 03/21/16 at 19:46 Albuterol/ Ipratropium (Duoneb) 3 ml RTQID NEB Last administered on 03/21/16 11:13; Start 03/20/16 at 20:00; Stop 03/21/16 at 19:59 Acetaminophen/ Hydrocodone Bitart (Lortab 5/325) 1 tab PRN Q4HRS PRN PO PAIN Last administered on 03/20/16 22:59; Start 03/20/16 at 22:30; Stop 03/21/16 at 00:32; Status DC Aspirin (Ecotrin) 81 mg DAILY PO Last administered on 03/21/16 10:41; Start at 09:00 Atorvastatin Calcium (Lipitor) 10 mg HS PO ; Start 03/21/16 at 21:00 Glimepiride (Amaryl) 2 mg DAILY PO Last administered on 03/21/16 10:41; Start 03/21/16 at 09:00 Acetaminophen/ Hydrocodone Bitart (Lortab 5/325) 1 tab PRN Q6HRS PRN PO PAIN Last administered on 03/21/16 05:24; Start 03/20/16 at 23:45 Metformin HCl (Glucophage) 1,000 mg BID PO ; Start 03/21/16 at 09:00; Stop 03/21 at 09:00; Status DC Non-Formulary Medication 1 vial QID NEB ; Start 03/21/16 at 09:00; Status UNV Enoxaparin Sodium (Lovenox 40mg Syringe) 40 mg Q24H SQ ; Start 03/21/16 at 09:00 Megestrol Acetate (Megace) 400 mg BID PO Last administered on 03/21/16t 10:41; Start 03/21/16 at 09:00 Insulin Aspart (Novolog) 0-5 UNITS TIDWMEALS SQ ; Start 03/21/16 at 08:00 Dextrose 12.5 gm PRN Q15MIN PRN IV SEE COMMENTS; Start 03/20/16 at 23:45 Albuterol Sulfate (Ventolin Neb Soln) 2.5 mg RTQID NEB ; Start 03/21/16 at 08:00 Active Scripts Active Reported Glimepiride 2 Mg Tablet 2 Mg PO DAILY Hydrocodone-Apap 5-325 (Hydrocodone Bit/Acetaminophen) 1 Each Tablet 1 Tab PO PRN Q6HRS PRN Albuterol Sulfate Neb Soln (Albuterol Sulfate) 0.63 Mg/3 Ml Vial.neb 1 Vial NEB QID Atorvastatin Calcium 10 Mg Tablet 10 Mg PO HS Aspir 81 (Aspirin) 81 Mg Tablet. 1 Tab PO DAILY Metformin Hcl 1,000 Mg Tablet 1 Tab PO BID Vitals/I & O Vital Sign - Last 24 Hours 03/20/16 03/20/16 03/20/16 03/20/16 16:58 17:01 17:28 17:58 Temp 97.5 97.5 Pulse 88 87 88 Resp 26 B/P 105/61 105/61 99/58 104/53 Pulse Ox 95 97 97 O2 Delivery Nasal Cannula Room Air Nasal Cannula Nasal Cannula O2 Flow Rate 2 2 2 03/20/16 03/20/16 03/20/16 03/20/16 18:28 18:58 19:11 19:32 Pulse 80 82 90 Resp 32 B/P 91/54 88/54 97/57 101/59 Pulse Ox 100 100 96 O2 Delivery Nasal Cannula Nasal Cannula Nasal Cannula Nasal Cannula O2 Flow Rate 2 2 2 2 03/20/16 03/20/16 03/20/16 03/20/16 19:55 19:58 20:28 22:00 Pulse 92 100 Resp 26 33 B/P 100/55 101/56 Pulse Ox 92 89 96 O2 Delivery Nasal Cannula Nasal Cannula Nasal Cannula Nasal Cannula O2 Flow Rate 2.0 2 2 2.0 03/20/16 03/20/16 03/20/16 03/21/16 22:39 22:59 23:00 03:00 Temp 97.7 98.1 97.7 98.1 Pulse 101 94 Resp 18 18 18 B/P 94/52 95/52 Pulse Ox 96 92 97 O2 Delivery Nasal Cannula Nasal Cannula Nasal Cannula Nasal Cannula O2 Flow Rate 2.0 2.0 2.0 2.0 03/21/16 03/21/16 03/21/16 03/21/16 05:24 06:24 07:00 07:51 Temp 97.5 97.5 Pulse 95 Resp 18 19 B/P 89/51 Pulse Ox 97 97 93 93 O2 Delivery Nasal Cannula Nasal Cannula Nasal Cannula Nasal Cannula O2 Flow Rate 2.0 2.0 2.0 03/21/16 11:14 O2 Delivery Nasal Cannula O2 Flow Rate 2.0 Intake and Output 03/20/16 03/20/16 03/21/16 15:00 23:00 07:00 Intake Total 1050 ml Output Total 0 ml Balance 1050 ml 0 ml DOM GONZALEZ MD Mar 21, 2016 11:23
[2016-03-21] MEDS ORDERED: TBO-FILGRASTIM 480 MCG/0.8 ML SYRINGE. SQ SCH (12:00)
--- NOTE | 2016-03-21 13:37 | PDOC2 ---
PALLIATIVE CARE Palliative Care Note Palliative Care Consult requested by Dr. Hammond to address plan of care Diagnosis; Non-small cell lung cancer STAGE IV; post chemotherapy and radiation therapy; FTT;DM Spoke with patient. Denies pain, SOB Plan family meeting tomorrow at 1230. ELVER JI Mar 21, 2016 13:37
[2016-03-21] MEDS: ENOXAPARIN 40 MG/0.4 ML DISP.SYRIN. SQ SCH (14:31)
[2016-03-21] MEDS: ATORVASTATIN CALCIUM 10 MG TABLET. PO SCH (20:59)
[2016-03-21] MEDS: CEFTRIAXONE SODIUM 1 GM in IV NORMAL SALINE 50ML 50 ML IV SCH (21:03)
[2016-03-22 03:00] VITALS: BP 94/50
[2016-03-22 04:46] LABS: BASO % 0 % (0-3); EOS % 3 % (0-3); HEMATOCRIT 28.1 % (39.0-53.0); HEMOGLOBIN 9.4 g/dL (13.0-17.5); LYMPH # 0.2 x10^3/uL (1.0-4.8); LYMPH % 3 % (24-48); MEAN CORPUSCULAR HEMOGLOBIN 30 pg (25-35); MEAN CORPUSCULAR HGB CONC 33 g/dL (31-37); MEAN CORPUSCULAR VOLUME 91 fL (79-100); MONO % 7 % (0-9); NEUT % 87 % (31-73); PLATELET COUNT 210 x10^3/uL (140-400); RED BLOOD COUNT 3.09 x10^6/uL (4.30-5.70); RED CELL DISTRIBUTION WIDTH 20.8 % (11.5-14.5); WHITE BLOOD COUNT 5.6 x10^3/uL (4.0-11.0)
[2016-03-22 05:09] LABS: CALCIUM 8.2 mg/dL (8.5-10.1); CREATININE 0.6 mg/dL (0.7-1.3); GFR 134.4; POTASSIUM 3.4 mmol/L (3.5-5.1)
[2016-03-22 07:30] VITALS: BP 102/53
[2016-03-22] MEDS: ALBUTEROL SULFATE 2.5 MG/3 ML NEBU. NEB SCH ×4 (07:52→19:50)
[2016-03-22] MEDS: INSULIN ASPART 300 UNITS/3 ML INSULN.PEN SQ SCH ×3 (08:00→17:00)
[2016-03-22] MEDS: ASPIRIN ENTERIC COATED 81 MG TABLET.DR. PO SCH (08:40)
[2016-03-22] MEDS: GLIMEPIRIDE 2 MG TABLET PO SCH (08:40)
[2016-03-22] MEDS: MEGESTROL 400 MG/10 ML ORAL.SUSP. PO SCH ×2 (08:40→20:13)
[2016-03-22] MEDS: ENOXAPARIN 40 MG/0.4 ML DISP.SYRIN. SQ SCH (08:43)
--- NOTE | 2016-03-22 10:06 | PDOC ---
PROGRESS NOTES Chief Complaint Chief Complaint Pancytopenia FTT ASSESSMENT AND PLAN: 1. Neutropenia: good response to grnaix, stop med. poor BM reserve 2. Anemia: acute on chronic with chemo induced BM toxicity and chronic inflammation. s/p transfusion with good response. monitor 3. FTT: added Megace to regimen 4. weakness: OT/PT eval 5. Protein/calorie malnutrition: severe. protein supplements 6. NSCLC stage 4: difficulties with tolerating chemo. benefit of treatment have to be weighed with accelerated FTT. 7. End of Life: palliative care following, family meeting later today. 8. Prophylaxis: lovenox Vitals Vitals Vital Signs Date Time Temp Pulse Resp B/P Pulse Ox O2 Delivery O2 Flow Rate FiO2 03/22/16 07:54 100 Nasal Cannula 2.0 03/22/16 07:30 97.1 76 20 102/53 97.1 Physical Exam General: Alert, Cooperative, No acute distress Heart: Regular rate Lungs: Clear, Other Abdomen: Normal bowel sounds, No tenderness Extremities: No edema Skin: No rashes Labs LABS Laboratory Tests Test 03/21/16 12:00 03/21/16 16:47 03/21/16 20:48 03/22/16 04:28 Glucose (Fingerstick) 141mg/dL (70-99) 166mg/dL (70-99) 139mg/dL (70-99) White Blood Count 5.6x10^3/uL (4.0-11.0) Red Blood Count 3.09x10^6/uL (4.30-5.70) Hemoglobin 9.4g/dL (13.0-17.5) Hematocrit 28.1% (39.0-53.0) Mean Corpuscular Volume 91fL (79-100) Mean Corpuscular Hemoglobin 30pg (25-35) Mean Corpuscular Hemoglobin Concent 33g/dL (31-37) Red Cell Distribution Width 20.8% (11.5-14.5) Platelet Count 210x10^3/uL (140-400) Neutrophils (%) (Auto) 87% (31-73) Lymphocytes (%) (Auto) 3% (24-48) Monocytes (%) (Auto) 7% (0-9) Eosinophils (%) (Auto) 3% (0-3) Basophils (%) (Auto) 0% (0-3) Neutrophils # (Auto) 4.8x10^3uL (1.8-7.7) Lymphocytes # (Auto) 0.2x10^3/uL (1.0-4.8) Monocytes # (Auto) 0.4x10^3/uL (0.0-1.1) Eosinophils # (Auto) 0.2x10^3/uL (0.0-0.7) Basophils # (Auto) 0.0x10^3/uL (0.0-0.2) Sodium Level 145mmol/L (136-145) Potassium Level 3.4mmol/L (3.5-5.1) Chloride Level 110mmol/L (98-107) Carbon Dioxide Level 26mmol/L (21-32) Anion Gap 9 (6-14) Blood Urea Nitrogen 6mg/dL (8-26) Creatinine 0.6mg/dL (0.7-1.3) Estimated GFR (Cockcroft-Gault) 134.4 Glucose Level 78mg/dL (70-99) Calcium Level 8.2mg/dL (8.5-10.1) Test 03/22/16 07:52 Glucose (Fingerstick) 74mg/dL (70-99) Review of Systems Review of Systems picky eating, not only with hospital food. [facility] with going to [place] Comment Review of Relevant I have reviewed the following items liz (where applicable) has been applied. Labs Laboratory Tests Test 03/20/16 17:40 03/20/16 19:15 03/20/16 19:53 03/20/16 23:30 White Blood Count 1.8x10^3/uL (4.0-11.0) Red Blood Count 2.49x10^6/uL (4.30-5.70) Hemoglobin 7.5g/dL (13.0-17.5) Hematocrit 22.9% (39.0-53.0) Mean Corpuscular Volume 92fL (79-100) Mean Corpuscular Hemoglobin 30pg (25-35) Mean Corpuscular Hemoglobin Concent 33g/dL (31-37) Red Cell Distribution Width 21.9% (11.5-14.5) Platelet Count 209x10^3/uL (140-400) Neutrophils (%) (Auto) 65% (31-73) Lymphocytes (%) (Auto) 11% (24-48) Monocytes (%) (Auto) 15% (0-9) Eosinophils (%) (Auto) 9% (0-3) Basophils (%) (Auto) 1% (0-3) Neutrophils # (Auto) 1.2x10^3uL (1.8-7.7) Lymphocytes # (Auto) 0.2x10^3/uL (1.0-4.8) Monocytes # (Auto) 0.3x10^3/uL (0.0-1.1) Eosinophils # (Auto) 0.2x10^3/uL (0.0-0.7) Basophils # (Auto) 0.0x10^3/uL (0.0-0.2) Segmented Neutrophils % 58% (35-66) Band Neutrophils % 10% (0-9) Lymphocytes % 12% (24-48) Monocytes % 15% (0-10) Eosinophils % 5% (0-5) Platelet Estimate Adequate (ADEQUATE) Prothrombin Time 14.7SEC (11.7-14.0) Prothromb Time International Ratio 1.2 (0.8-1.1) Sodium Level 135mmol/L (136-145) Potassium Level 4.1mmol/L (3.5-5.1) Chloride Level 100mmol/L (98-107) Carbon Dioxide Level 28mmol/L (21-32) Anion Gap 7 (6-14) Blood Urea Nitrogen 17mg/dL (8-26) Creatinine 0.8mg/dL (0.7-1.3) Estimated GFR (Cockcroft-Gault) 96.4 BUN/Creatinine Ratio 21 (6-20) Glucose Level 147mg/dL (70-99) Calcium Level 8.7mg/dL (8.5-10.1) Total Bilirubin 0.9mg/dL (0.2-1.0) Aspartate Amino Transf (AST/SGOT) 60U/L (15-37) Alanine Aminotransferase (ALT/SGPT) 23U/L (16-63) Alkaline Phosphatase 268U/L (46-116) Troponin I Quantitative < 0.017ng/mL (0.000-0.055) Total Protein 6.7g/dL (6.4-8.2) Albumin 2.0g/dL (3.4-5.0) Albumin/Globulin Ratio 0.4 (1.0-1.7) Urine Collection Type Unknown Urine Color Rina Urine Clarity Clear Urine pH 6.0 Urine Specific Toutle >=1.030 Urine Protein Negativemg/dL (NEG-TRACE) Urine Glucose (UA) Negativemg/dL (NEG) Urine Ketones (Stick) 15mg/dL (NEG) Urine Blood Negative (NEG) Urine Nitrite Negative (NEG) Urine Bilirubin Small (NEG) Urine Urobilinogen Dipstick 2.0mg/dL (0.2 mg/dL) Urine Leukocyte Esterase Negative (NEG) Urine RBC 0/HPF (0-2) Urine WBC 0/HPF (0-4) Urine Bacteria 0/HPF (0-FEW) Urine Mucus Marked/LPF Lactic Acid Level 0.8mmol/L (0.4-2.0) Nasal Screen MRSA (PCR) Positive (Negative) Test 03/21/16 04:00 03/21/16 07:57 03/21/16 12:00 03/21/16 16:47 White Blood Count 1.5x10^3/uL (4.0-11.0) Red Blood Count 2.33x10^6/uL (4.30-5.70) Hemoglobin 7.0g/dL (13.0-17.5) Hematocrit 21.2% (39.0-53.0) Mean Corpuscular Volume 91fL (79-100) Mean Corpuscular Hemoglobin 30pg (25-35) Mean Corpuscular Hemoglobin Concent 33g/dL (31-37) Red Cell Distribution Width 21.9% (11.5-14.5) Platelet Count 186x10^3/uL (140-400) Neutrophils (%) (Auto) 65% (31-73) Lymphocytes (%) (Auto) 9% (24-48) Monocytes (%) (Auto) 15% (0-9) Eosinophils (%) (Auto) 11% (0-3) Basophils (%) (Auto) 1% (0-3) Neutrophils # (Auto) 1.0x10^3uL (1.8-7.7) Lymphocytes # (Auto) 0.1x10^3/uL (1.0-4.8) Monocytes # (Auto) 0.2x10^3/uL (0.0-1.1) Eosinophils # (Auto) 0.2x10^3/uL (0.0-0.7) Basophils # (Auto) 0.0x10^3/uL (0.0-0.2) Sodium Level 137mmol/L (136-145) Potassium Level 3.6mmol/L (3.5-5.1) Chloride Level 103mmol/L (98-107) Carbon Dioxide Level 27mmol/L (21-32) Anion Gap 7 (6-14) Blood Urea Nitrogen 12mg/dL (8-26) Creatinine 0.6mg/dL (0.7-1.3) Estimated GFR (Cockcroft-Gault) 134.4 BUN/Creatinine Ratio 20 (6-20) Glucose Level 169mg/dL (70-99) Calcium Level 8.0mg/dL (8.5-10.1) Total Bilirubin 0.4mg/dL (0.2-1.0) Aspartate Amino Transf (AST/SGOT) 30U/L (15-37) Alanine Aminotransferase (ALT/SGPT) 23U/L (16-63) Alkaline Phosphatase 194U/L (46-116) Total Protein 5.4g/dL (6.4-8.2) Albumin 1.6g/dL (3.4-5.0) Albumin/Globulin Ratio 0.4 (1.0-1.7) Glucose (Fingerstick) 139mg/dL (70-99) 141mg/dL (70-99) 166mg/dL (70-99) Test 03/21/16 20:48 03/22/16 04:28 03/22/16 07:52 Glucose (Fingerstick) 139mg/dL (70-99) 74mg/dL (70-99) White Blood Count 5.6x10^3/uL (4.0-11.0) Red Blood Count 3.09x10^6/uL (4.30-5.70) Hemoglobin 9.4g/dL (13.0-17.5) Hematocrit 28.1% (39.0-53.0) Mean Corpuscular Volume 91fL (79-100) Mean Corpuscular Hemoglobin 30pg (25-35) Mean Corpuscular Hemoglobin Concent 33g/dL (31-37) Red Cell Distribution Width 20.8% (11.5-14.5) Platelet Count 210x10^3/uL (140-400) Neutrophils (%) (Auto) 87% (31-73) Lymphocytes (%) (Auto) 3% (24-48) Monocytes (%) (Auto) 7% (0-9) Eosinophils (%) (Auto) 3% (0-3) Basophils (%) (Auto) 0% (0-3) Neutrophils # (Auto) 4.8x10^3uL (1.8-7.7) Lymphocytes # (Auto) 0.2x10^3/uL (1.0-4.8) Monocytes # (Auto) 0.4x10^3/uL (0.0-1.1) Eosinophils # (Auto) 0.2x10^3/uL (0.0-0.7) Basophils # (Auto) 0.0x10^3/uL (0.0-0.2) Sodium Level 145mmol/L (136-145) Potassium Level 3.4mmol/L (3.5-5.1) Chloride Level 110mmol/L (98-107) Carbon Dioxide Level 26mmol/L (21-32) Anion Gap 9 (6-14) Blood Urea Nitrogen 6mg/dL (8-26) Creatinine 0.6mg/dL (0.7-1.3) Estimated GFR (Cockcroft-Gault) 134.4 Glucose Level 78mg/dL (70-99) Calcium Level 8.2mg/dL (8.5-10.1) Laboratory Tests Test 03/21/16 12:00 03/21/16 16:47 03/21/16 20:48 03/22/16 04:28 Glucose (Fingerstick) 141mg/dL (70-99) 166mg/dL (70-99) 139mg/dL (70-99) White Blood Count 5.6x10^3/uL (4.0-11.0) Red Blood Count 3.09x10^6/uL (4.30-5.70) Hemoglobin 9.4g/dL (13.0-17.5) Hematocrit 28.1% (39.0-53.0) Mean Corpuscular Volume 91fL (79-100) Mean Corpuscular Hemoglobin 30pg (25-35) Mean Corpuscular Hemoglobin Concent 33g/dL (31-37) Red Cell Distribution Width 20.8% (11.5-14.5) Platelet Count 210x10^3/uL (140-400) Neutrophils (%) (Auto) 87% (31-73) Lymphocytes (%) (Auto) 3% (24-48) Monocytes (%) (Auto) 7% (0-9) Eosinophils (%) (Auto) 3% (0-3) Basophils (%) (Auto) 0% (0-3) Neutrophils # (Auto) 4.8x10^3uL (1.8-7.7) Lymphocytes # (Auto) 0.2x10^3/uL (1.0-4.8) Monocytes # (Auto) 0.4x10^3/uL (0.0-1.1) Eosinophils # (Auto) 0.2x10^3/uL (0.0-0.7) Basophils # (Auto) 0.0x10^3/uL (0.0-0.2) Sodium Level 145mmol/L (136-145) Potassium Level 3.4mmol/L (3.5-5.1) Chloride Level 110mmol/L (98-107) Carbon Dioxide Level 26mmol/L (21-32) Anion Gap 9 (6-14) Blood Urea Nitrogen 6mg/dL (8-26) Creatinine 0.6mg/dL (0.7-1.3) Estimated GFR (Cockcroft-Gault) 134.4 Glucose Level 78mg/dL (70-99) Calcium Level 8.2mg/dL (8.5-10.1) Test 03/22/16 07:52 Glucose (Fingerstick) 74mg/dL (70-99) Medications Current Medications Ceftriaxone Sodium 1 gm/ Sodium Chloride 50 ml @ 100 mls/hr Q24H IV Last administered on 03/21/16 21:03; Start 03/21/16 at 20:00 Sodium Chloride 1,000 ml @ 1,000 mls/hr 1X ONCE IV Last administered on 19:14; Start 03/20/16 at 19:15; Stop 03/20/16 at 20:14; Status DC Ceftriaxone Sodium (Rocephin 1gm Ivpb For Omni) 50 ml @ 100 mls/hr 1X ONCE IV Last administered on 03/20/16 19:15; Start 03/20/16 at 19:15; Stop 03/20/16 at 19:44; Status DC Iohexol (Omnipaque 300 Mg/ml) 75 ml 1X ONCE IV Last administered on 03/20/16 19:22; Start 03/20/16 at 19:15; Stop 03/20/16 at 19:19; Status DC Info (Do NOT chart on this entry -- for MONITORING) 1 each PRN DAILY PRN MC SEE COMMENTS; Start 03/20/16 at 19:30; Stop 03/22/16 at 19:29 Albuterol/ Ipratropium (Duoneb) 3 ml 1X ONCE NEB Last administered on 19:55; Start 03/20/16 at 20:00; Stop 03/20/16 at 20:01; Status DC Ondansetron HCl 4 mg 4 mg PRN Q8HRS PRN IV NAUSEA/VOMITING; Start 03/20/16 at 20:00; Stop 03/21/16 at 19:59; Status DC Sodium Chloride (Iv Sodium Chloride 0.9% 1000ml Bag) 1,000 ml @ 150 mls/hr Q6H40M IV Last administered on 03/21/16 20:59; Start 03/20/16 at 19:47; Stop 03/21/16 at 19:46; Status DC Albuterol/ Ipratropium (Duoneb) 3 ml RTQID NEB Last administered on 03/21/16 15:48; Start 03/20/16 at 20:00; Stop 03/21/16 at 19:59; Status DC Acetaminophen/ Hydrocodone Bitart (Lortab 5/325) 1 tab PRN Q4HRS PRN PO PAIN Last administered on 03/20/16 22:59; Start 03/20/16 at 22:30; Stop 03/21/16 at 00:32; Status DC Aspirin (Ecotrin) 81 mg DAILY PO Last administered on 03/22/16 08:40; Start at 09:00 Atorvastatin Calcium (Lipitor) 10 mg HS PO Last administered on 03/21/16 20:59 ; Start 03/21/16 at 21:00 Glimepiride (Amaryl) 2 mg DAILY PO Last administered on 03/22/16 08:40; Start 03/21/16 at 09:00 Acetaminophen/ Hydrocodone Bitart (Lortab 5/325) 1 tab PRN Q6HRS PRN PO PAIN Last administered on 03/21/16 20:59; Start 03/20/16 at 23:45 Metformin HCl (Glucophage) 1,000 mg BID PO ; Start 03/21/16 at 09:00; Stop 03/21 at 09:00; Status DC Non-Formulary Medication 1 vial QID NEB ; Start 03/21/16 at 09:00; Status UNV Enoxaparin Sodium (Lovenox 40mg Syringe) 40 mg Q24H SQ Last administered on 08:43; Start 03/21/16 at 09:00 Megestrol Acetate (Megace) 400 mg BID PO Last administered on 03/22/16 08:40; Start 03/21/16 at 09:00 Insulin Aspart (Novolog) 0-5 UNITS TIDWMEALS SQ ; Start 03/21/16 at 08:00 Dextrose 12.5 gm PRN Q15MIN PRN IV SEE COMMENTS; Start 03/20/16 at 23:45 Albuterol Sulfate (Ventolin Neb Soln) 2.5 mg RTQID NEB Last administered on 07:52; Start 03/21/16 at 08:00 Tbo-Filgrastim (Granix) 480 mcg QHS SQ Last administered on 03/21/16 21:00; Start 03/21/16 at 12:00 Active Scripts Active Reported Glimepiride 2 Mg Tablet 2 Mg PO DAILY Hydrocodone-Apap 5-325 (Hydrocodone Bit/Acetaminophen) 1 Each Tablet 1 Tab PO PRN Q6HRS PRN Albuterol Sulfate Neb Soln (Albuterol Sulfate) 0.63 Mg/3 Ml Vial.neb 1 Vial NEB QID Atorvastatin Calcium 10 Mg Tablet 10 Mg PO HS Aspir 81 (Aspirin) 81 Mg Tablet. 1 Tab PO DAILY Metformin Hcl 1,000 Mg Tablet 1 Tab PO BID Vitals/I & O Vital Sign - Last 24 Hours 1/18/17 1/18/17 1/18/17 1/18/17 11:00 11:14 14:01 14:25 Temp 97.9 99.0 99.0 97.9 99.0 99.0 Pulse 107 107 104 Resp 18 20 20 B/P 115/63 110/66 98/58 Pulse Ox 92 O2 Delivery Nasal Cannula Nasal Cannula O2 Flow Rate 2.0 03/21/16 03/21/16 03/21/16 03/21/16 15:00 15:00 15:30 15:51 Temp 99.0 99.0 99.0 99.0 99.0 99.0 Pulse 106 106 101 Resp 20 20 20 B/P 112/60 112/60 99/57 O2 Delivery Nasal Cannula Nasal Cannula O2 Flow Rate 2.0 2.0 03/21/16 03/21/16 03/21/16 03/21/16 16:30 16:45 19:00 19:03 Temp 97.0 97.5 98.4 97.0 97.5 98.4 Pulse 106 104 112 Resp 20 20 18 B/P 110/60 108/60 104/56 Pulse Ox 95 98 O2 Delivery Nasal Cannula Nasal Cannula O2 Flow Rate 2.0 2.0 03/21/16 03/21/16 03/21/16 03/21/16 20:00 20:59 21:59 23:00 Temp 98.1 98.1 Pulse 88 Resp 18 B/P 105/59 Pulse Ox 98 98 96 O2 Delivery Nasal Cannula Nasal Cannula Nasal Cannula Nasal Cannula O2 Flow Rate 2.0 2.0 2.0 2.0 03/22/16 03/22/16 03/22/16 03:00 07:30 07:54 Temp 97.9 97.1 97.9 97.1 Pulse 84 76 Resp 18 20 B/P 94/50 102/53 Pulse Ox 91 95 100 O2 Delivery Nasal Cannula Nasal Cannula Nasal Cannula O2 Flow Rate 2.0 2.0 2.0 Intake and Output 03/21/16 03/21/16 03/22/16 15:00 23:00 07:00 Intake Total 120 ml 50 ml Output Total 310 ml 1125 ml Balance -190 ml -1075 ml DOM GONZALEZ MD Mar 22, 2016 10:06
[2016-03-22] MEDS: HYDROCODONE/APAP 5/325MG TABLET. PO PRN ×2 (11:01→20:13)
[2016-03-22 11:20] VITALS: BP 110/64
[2016-03-22 12:31] LABS: % EOS 5 % (0-5)
[2016-03-22 12:33] LABS: ANISOCYTOSIS MOD; PLT ESTIMATE ADEQUATE (ADEQUATE)
[2016-03-22 12:34] LABS: HYPOCHROMIA SLIGHT; TOXIC GRANULATION SLIGHT
--- NOTE | 2016-03-22 13:41 | PDOC2 ---
PALLIATIVE CARE Palliative Care Note Palliative Care Met with patient, Zaida, daughter Judit, and son Javy. Reviewed medical condition; Stage IV lung cancer, FTT. No chemotherapy since February. Increased weakness, decreased appetite. Patient tearful. Discussed options. Patient had discussed Hospice with his primary physician-- Dr. Fofana. Discussed function of hospice and support that could be provided. Patient would like to proceed with hospice support. Discussed Code Status: Patient requests DNR/DNI. Understands that without this attempt he likely would . Family in support of his wishes. Outside the Hospital DNR/DNI form signed by patient. 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 Has 14 grandchildren. Enjoys being able to go outside. Not a member of a [employer] but spirituality is important DME; Hospital Bed, W/C, oxygen, bedside table. can be reached at [phone]. [address] [facility] [address]; [facility] [id number] EL[place] JI Mar 22, 2016 13:41
[2016-03-22 15:15] VITALS: BP 83/45
[2016-03-22 19:00] VITALS: BP 100/61
[2016-03-22] MEDS: ATORVASTATIN CALCIUM 10 MG TABLET. PO SCH (20:12)
[2016-03-22] MEDS: CEFTRIAXONE SODIUM 1 GM in IV NORMAL SALINE 50ML 50 ML IV SCH (20:13)
[2016-03-22 22:54] VITALS: BP 91/54
[2016-03-23 03:00] VITALS: BP 99/60
[2016-03-23 04:56] LABS: BASO % 0 % (0-3); EOS % 2 % (0-3); HEMATOCRIT 25.5 % (39.0-53.0); HEMOGLOBIN 8.6 g/dL (13.0-17.5); LYMPH # 0.2 x10^3/uL (1.0-4.8); LYMPH % 3 % (24-48); MEAN CORPUSCULAR HEMOGLOBIN 31 pg (25-35); MEAN CORPUSCULAR HGB CONC 34 g/dL (31-37); MEAN CORPUSCULAR VOLUME 91 fL (79-100); MONO % 4 % (0-9); NEUT % 92 % (31-73); PLATELET COUNT 200 x10^3/uL (140-400); RED BLOOD COUNT 2.81 x10^6/uL (4.30-5.70); RED CELL DISTRIBUTION WIDTH 21.6 % (11.5-14.5); WHITE BLOOD COUNT 6.4 x10^3/uL (4.0-11.0)
[2016-03-23 05:17] LABS: CALCIUM 8.3 mg/dL (8.5-10.1); CREATININE 0.5 mg/dL (0.7-1.3); GFR 165.9; POTASSIUM 3.5 mmol/L (3.5-5.1)
[2016-03-23 07:00] VITALS: BP 92/52
[2016-03-23] MEDS: ALBUTEROL SULFATE 2.5 MG/3 ML NEBU. NEB SCH ×3 (07:58→15:37)
[2016-03-23] MEDS: INSULIN ASPART 300 UNITS/3 ML INSULN.PEN SQ SCH ×2 (08:00→12:00)
[2016-03-23] MEDS: GLIMEPIRIDE 2 MG TABLET PO SCH (09:00)
[2016-03-23] MEDS: MEGESTROL 400 MG/10 ML ORAL.SUSP. PO SCH (09:14)
[2016-03-23] MEDS: ASPIRIN ENTERIC COATED 81 MG TABLET.DR. PO SCH (09:14)
[2016-03-23] MEDS: ENOXAPARIN 40 MG/0.4 ML DISP.SYRIN. SQ SCH (09:15)
--- NOTE | 2016-03-23 10:53 | PDOC2 ---
PALLIATIVE CARE Palliative Care Note Patient Care Patient has met with [facility]. Equipment will be in place by 1300. Plan transportation to home with oxygen. Outside the Hospital DNR/DNI signed and will need to accompany patient home. ELVER JI Mar 23, 2016 10:53
[2016-03-23 11:00] VITALS: BP 95/54
[2016-03-23] MEDS ORDERED: MEGE400O4 PO (11:58)
[2016-03-23] MEDS ORDERED: HYDR-2666 PO (11:59)
[2016-03-23] MEDS: HYDROCODONE/APAP 5/325MG TABLET. PO PRN (14:15)
--- NOTE | 2016-03-23 15:02 | PDOC ---
PROGRESS NOTES Chief Complaint Chief Complaint Pancytopenia FTT ASSESSMENT AND PLAN: 1. Neutropenia: good response to granix, stopped med. 2. Anemia: acute on chronic with chemo induced BM toxicity and chronic inflammation. s/p transfusion with good response. monitor 3. FTT: added Megace to regimen 4. weakness: OT/PT eval 5. Protein/calorie malnutrition: severe. protein supplements 6. NSCLC stage 4: difficulties with tolerating chemo. benefit of treatment have to be weighed with accelerated FTT. 7. End of Life: palliative care following, family meeting yesterday ended in decison to go home with hospice. discussed with pt alone again today, answered questions. 8. Prophylaxis: lovenox 9. Dispo: home w/ hospice today Vitals Vitals Vital Signs Date Time Temp Pulse Resp B/P Pulse Ox O2 Delivery O2 Flow Rate FiO2 03/23/16 14:15 92 Nasal Cannula 3.0 03/23/16 11:00 99.3 115 20 95/54 99.3 Physical Exam General: Alert, Cooperative, No acute distress Heart: Regular rate Lungs: Clear, Other Abdomen: Normal bowel sounds, No tenderness Extremities: No edema Skin: No rashes Labs LABS Laboratory Tests Test 03/22/16 17:10 03/22/16 20:56 03/23/16 04:15 03/23/16 08:19 Glucose (Fingerstick) 75mg/dL (70-99) 66mg/dL (70-99) 54mg/dL (70-99) White Blood Count 6.4x10^3/uL (4.0-11.0) Red Blood Count 2.81x10^6/uL (4.30-5.70) Hemoglobin 8.6g/dL (13.0-17.5) Hematocrit 25.5% (39.0-53.0) Mean Corpuscular Volume 91fL (79-100) Mean Corpuscular Hemoglobin 31pg (25-35) Mean Corpuscular Hemoglobin Concent 34g/dL (31-37) Red Cell Distribution Width 21.6% (11.5-14.5) Platelet Count 200x10^3/uL (140-400) Neutrophils (%) (Auto) 92% (31-73) Lymphocytes (%) (Auto) 3% (24-48) Monocytes (%) (Auto) 4% (0-9) Eosinophils (%) (Auto) 2% (0-3) Basophils (%) (Auto) 0% (0-3) Neutrophils # (Auto) 5.9x10^3uL (1.8-7.7) Lymphocytes # (Auto) 0.2x10^3/uL (1.0-4.8) Monocytes # (Auto) 0.2x10^3/uL (0.0-1.1) Eosinophils # (Auto) 0.1x10^3/uL (0.0-0.7) Basophils # (Auto) 0.0x10^3/uL (0.0-0.2) Sodium Level 142mmol/L (136-145) Potassium Level 3.5mmol/L (3.5-5.1) Chloride Level 109mmol/L (98-107) Carbon Dioxide Level 27mmol/L (21-32) Anion Gap 6 (6-14) Blood Urea Nitrogen 8mg/dL (8-26) Creatinine 0.5mg/dL (0.7-1.3) Estimated GFR (Cockcroft-Gault) 165.9 Glucose Level 58mg/dL (70-99) Calcium Level 8.3mg/dL (8.5-10.1) Test 03/23/16 09:19 03/23/16 11:54 Glucose (Fingerstick) 78mg/dL (70-99) 94mg/dL (70-99) Review of Systems Review of Systems essentially unchanged. still adjusting mentally to new status and prognosis Comment Review of Relevant I have reviewed the following items liz (where applicable) has been applied. Labs Laboratory Tests Test 03/21/16 16:47 03/21/16 20:48 03/22/16 04:28 03/22/16 07:52 Glucose (Fingerstick) 166mg/dL (70-99) 139mg/dL (70-99) 74mg/dL (70-99) White Blood Count 5.6x10^3/uL (4.0-11.0) Red Blood Count 3.09x10^6/uL (4.30-5.70) Hemoglobin 9.4g/dL (13.0-17.5) Hematocrit 28.1% (39.0-53.0) Mean Corpuscular Volume 91fL (79-100) Mean Corpuscular Hemoglobin 30pg (25-35) Mean Corpuscular Hemoglobin Concent 33g/dL (31-37) Red Cell Distribution Width 20.8% (11.5-14.5) Platelet Count 210x10^3/uL (140-400) Neutrophils (%) (Auto) 87% (31-73) Lymphocytes (%) (Auto) 3% (24-48) Monocytes (%) (Auto) 7% (0-9) Eosinophils (%) (Auto) 3% (0-3) Basophils (%) (Auto) 0% (0-3) Neutrophils # (Auto) 4.8x10^3uL (1.8-7.7) Lymphocytes # (Auto) 0.2x10^3/uL (1.0-4.8) Monocytes # (Auto) 0.4x10^3/uL (0.0-1.1) Eosinophils # (Auto) 0.2x10^3/uL (0.0-0.7) Basophils # (Auto) 0.0x10^3/uL (0.0-0.2) Segmented Neutrophils % 64% (35-66) Band Neutrophils % 26% (0-9) Lymphocytes % 4% (24-48) Monocytes % 1% (0-10) Eosinophils % 5% (0-5) Toxic Granulation Slight Platelet Estimate Adequate (ADEQUATE) Hypochromasia Slight Anisocytosis Mod Sodium Level 145mmol/L (136-145) Potassium Level 3.4mmol/L (3.5-5.1) Chloride Level 110mmol/L (98-107) Carbon Dioxide Level 26mmol/L (21-32) Anion Gap 9 (6-14) Blood Urea Nitrogen 6mg/dL (8-26) Creatinine 0.6mg/dL (0.7-1.3) Estimated GFR (Cockcroft-Gault) 134.4 Glucose Level 78mg/dL (70-99) Calcium Level 8.2mg/dL (8.5-10.1) Test 03/22/16 11:34 03/22/16 17:10 03/22/16 20:56 03/23/16 04:15 Glucose (Fingerstick) 161mg/dL (70-99) 75mg/dL (70-99) 66mg/dL (70-99) White Blood Count 6.4x10^3/uL (4.0-11.0) Red Blood Count 2.81x10^6/uL (4.30-5.70) Hemoglobin 8.6g/dL (13.0-17.5) Hematocrit 25.5% (39.0-53.0) Mean Corpuscular Volume 91fL (79-100) Mean Corpuscular Hemoglobin 31pg (25-35) Mean Corpuscular Hemoglobin Concent 34g/dL (31-37) Red Cell Distribution Width 21.6% (11.5-14.5) Platelet Count 200x10^3/uL (140-400) Neutrophils (%) (Auto) 92% (31-73) Lymphocytes (%) (Auto) 3% (24-48) Monocytes (%) (Auto) 4% (0-9) Eosinophils (%) (Auto) 2% (0-3) Basophils (%) (Auto) 0% (0-3) Neutrophils # (Auto) 5.9x10^3uL (1.8-7.7) Lymphocytes # (Auto) 0.2x10^3/uL (1.0-4.8) Monocytes # (Auto) 0.2x10^3/uL (0.0-1.1) Eosinophils # (Auto) 0.1x10^3/uL (0.0-0.7) Basophils # (Auto) 0.0x10^3/uL (0.0-0.2) Sodium Level 142mmol/L (136-145) Potassium Level 3.5mmol/L (3.5-5.1) Chloride Level 109mmol/L (98-107) Carbon Dioxide Level 27mmol/L (21-32) Anion Gap 6 (6-14) Blood Urea Nitrogen 8mg/dL (8-26) Creatinine 0.5mg/dL (0.7-1.3) Estimated GFR (Cockcroft-Gault) 165.9 Glucose Level 58mg/dL (70-99) Calcium Level 8.3mg/dL (8.5-10.1) Test 03/23/16 08:19 03/23/16 09:19 03/23/16 11:54 Glucose (Fingerstick) 54mg/dL (70-99) 78mg/dL (70-99) 94mg/dL (70-99) Laboratory Tests Test 03/22/16 17:10 03/22/16 20:56 03/23/16 04:15 03/23/16 08:19 Glucose (Fingerstick) 75mg/dL (70-99) 66mg/dL (70-99) 54mg/dL (70-99) White Blood Count 6.4x10^3/uL (4.0-11.0) Red Blood Count 2.81x10^6/uL (4.30-5.70) Hemoglobin 8.6g/dL (13.0-17.5) Hematocrit 25.5% (39.0-53.0) Mean Corpuscular Volume 91fL (79-100) Mean Corpuscular Hemoglobin 31pg (25-35) Mean Corpuscular Hemoglobin Concent 34g/dL (31-37) Red Cell Distribution Width 21.6% (11.5-14.5) Platelet Count 200x10^3/uL (140-400) Neutrophils (%) (Auto) 92% (31-73) Lymphocytes (%) (Auto) 3% (24-48) Monocytes (%) (Auto) 4% (0-9) Eosinophils (%) (Auto) 2% (0-3) Basophils (%) (Auto) 0% (0-3) Neutrophils # (Auto) 5.9x10^3uL (1.8-7.7) Lymphocytes # (Auto) 0.2x10^3/uL (1.0-4.8) Monocytes # (Auto) 0.2x10^3/uL (0.0-1.1) Eosinophils # (Auto) 0.1x10^3/uL (0.0-0.7) Basophils # (Auto) 0.0x10^3/uL (0.0-0.2) Sodium Level 142mmol/L (136-145) Potassium Level 3.5mmol/L (3.5-5.1) Chloride Level 109mmol/L (98-107) Carbon Dioxide Level 27mmol/L (21-32) Anion Gap 6 (6-14) Blood Urea Nitrogen 8mg/dL (8-26) Creatinine 0.5mg/dL (0.7-1.3) Estimated GFR (Cockcroft-Gault) 165.9 Glucose Level 58mg/dL (70-99) Calcium Level 8.3mg/dL (8.5-10.1) Test 03/23/16 09:19 03/23/16 11:54 Glucose (Fingerstick) 78mg/dL (70-99) 94mg/dL (70-99) Medications Current Medications Ceftriaxone Sodium 1 gm/ Sodium Chloride 50 ml @ 100 mls/hr Q24H IV Last administered on 03/22/16 20:13; Start 03/21/16 at 20:00 Sodium Chloride 1,000 ml @ 1,000 mls/hr 1X ONCE IV Last administered on 19:14; Start 03/20/16 at 19:15; Stop 03/20/16 at 20:14; Status DC Ceftriaxone Sodium (Rocephin 1gm Ivpb For Omni) 50 ml @ 100 mls/hr 1X ONCE IV Last administered on 03/20/16 19:15; Start 03/20/16 at 19:15; Stop 03/20/16 at 19:44; Status DC Iohexol (Omnipaque 300 Mg/ml) 75 ml 1X ONCE IV Last administered on 03/20/16 19:22; Start 03/20/16 at 19:15; Stop 03/20/16 at 19:19; Status DC Info (Do NOT chart on this entry -- for MONITORING) 1 each PRN DAILY PRN MC SEE COMMENTS; Start 03/20/16 at 19:30; Stop 03/22/16 at 19:29; Status DC Albuterol/ Ipratropium (Duoneb) 3 ml 1X ONCE NEB Last administered on 19:55; Start 03/20/16 at 20:00; Stop 03/20/16 at 20:01; Status DC Ondansetron HCl 4 mg 4 mg PRN Q8HRS PRN IV NAUSEA/VOMITING; Start 03/20/16 at 20:00; Stop 03/21/16 at 19:59; Status DC Sodium Chloride (Iv Sodium Chloride 0.9% 1000ml Bag) 1,000 ml @ 150 mls/hr Q6H40M IV Last administered on 03/21/16 20:59; Start 03/20/16 at 19:47; Stop 03/21/16 at 19:46; Status DC Albuterol/ Ipratropium (Duoneb) 3 ml RTQID NEB Last administered on 03/21/16 15:48; Start 03/20/16 at 20:00; Stop 03/21/16 at 19:59; Status DC Acetaminophen/ Hydrocodone Bitart (Lortab 5/325) 1 tab PRN Q4HRS PRN PO PAIN Last administered on 03/20/16 22:59; Start 03/20/16 at 22:30; Stop 03/21/16 at 00:32; Status DC Aspirin (Ecotrin) 81 mg DAILY PO Last administered on 03/23/16 09:14; Start at 09:00 Atorvastatin Calcium (Lipitor) 10 mg HS PO Last administered on 03/22/16 20:12 ; Start 03/21/16 at 21:00 Glimepiride (Amaryl) 2 mg DAILY PO Last administered on 03/22/16 08:40; Start 03/21/16 at 09:00 Acetaminophen/ Hydrocodone Bitart (Lortab 5/325) 1 tab PRN Q6HRS PRN PO PAIN Last administered on 03/23/16 14:15; Start 03/20/16 at 23:45 Metformin HCl (Glucophage) 1,000 mg BID PO ; Start 03/21/16 at 09:00; Stop 03/21 at 09:00; Status DC Non-Formulary Medication 1 vial QID NEB ; Start 03/21/16 at 09:00; Status UNV Enoxaparin Sodium (Lovenox 40mg Syringe) 40 mg Q24H SQ Last administered on 09:15; Start 03/21/16 at 09:00 Megestrol Acetate (Megace) 400 mg BID PO Last administered on 03/23/16 09:14; Start 03/21/16 at 09:00 Insulin Aspart (Novolog) 0-5 UNITS TIDWMEALS SQ Last administered on 03/22/16 12:04; Start 03/21/16 at 08:00 Dextrose 12.5 gm PRN Q15MIN PRN IV SEE COMMENTS; Start 03/20/16 at 23:45 Albuterol Sulfate (Ventolin Neb Soln) 2.5 mg RTQID NEB Last administered on t 11:37; Start 03/21/16 at 08:00 Tbo-Filgrastim (Granix) 480 mcg QHS SQ Last administered on 03/21/16t 21:00; Start 03/21/16 at 12:00; Stop 03/22/16 at 11:02; Status DC Active Scripts Active Hydrocodone-Apap 5-325 (Hydrocodone Bit/Acetaminophen) 1 Each Tablet 1 Tab PO Q4HRS PRN Megestrol Acetate 400 Mg/10 Ml Oral.susp 400 Mg PO BID Reported Glimepiride 2 Mg Tablet 2 Mg PO DAILY Albuterol Sulfate Neb Soln (Albuterol Sulfate) 0.63 Mg/3 Ml Vial.neb 1 Vial NEB QID Atorvastatin Calcium 10 Mg Tablet 10 Mg PO HS Aspir 81 (Aspirin) 81 Mg Tablet.dr 1 Tab PO DAILY Metformin Hcl 1,000 Mg Tablet 1 Tab PO BID Vitals/I & O Vital Sign - Last 24 Hours 03/22/16 03/22/16 03/22/16 03/22/16 15:15 16:41 19:00 19:51 Temp 98.2 98.2 98.2 98.2 Pulse 104 107 Resp 18 22 B/P 83/45 100/61 Pulse Ox 94 91 94 O2 Delivery Nasal Cannula Nasal Cannula Nasal Cannula Nasal Cannula O2 Flow Rate 2.0 2.0 2.0 3.0 03/22/16 03/22/16 03/22/16 03/22/16 20:00 20:13 21:13 22:54 Temp 99.3 99.3 Pulse 95 Resp 20 B/P 91/54 Pulse Ox 94 94 94 O2 Delivery Nasal Cannula Nasal Cannula Nasal Cannula Nasal Cannula O2 Flow Rate 3.0 3.0 3.0 2.0 03/23/16 03/23/16 03/23/16 03/23/16 03:00 07:00 08:00 08:01 Temp 98.8 97.5 98.8 97.5 Pulse 95 108 Resp 20 20 B/P 99/60 92/52 Pulse Ox 98 87 92 O2 Delivery Nasal Cannula Nasal Cannula Nasal Cannula Nasal Cannula O2 Flow Rate 2.0 2.0 3.0 3.0 1/20/17 03/23/16 03/23/16 03/23/16 11:00 11:39 11:43 14:15 Temp 99.3 99.3 Pulse 115 Resp 20 B/P 95/54 Pulse Ox 91 92 92 92 O2 Delivery Nasal Cannula Nasal Cannula Nasal Cannula Nasal Cannula O2 Flow Rate 2.0 3.0 3.0 3.0 Intake and Output 03/22/16 03/22/16 03/23/16 15:00 23:00 07:00 Intake Total 480 ml 240 ml 400 ml Balance 480 ml 240 ml 400 ml DOM GONZALEZ MD Mar 23, 2016 15:01
--- NOTE | 2016-03-23 20:29 | DS ---
DATE OF DISCHARGE: 03/23/2016 CHIEF COMPLAINT: Failure to thrive, hypoxia, metastatic nonsmall cell lung carcinoma. HOSPITAL COURSE: The patient is a 65-year-old gentleman with stage IV nonsmall cell lung carcinoma who presented with a significant shortness of breath, failure to thrive to the hospital. He had completed concurrent chemo and radiation to his chest in February. No further chemotherapy had been given yet, although the patient was looking forward to this. His main issue; however, was severely poor nutrition with ____intake continued weight loss. The patient denied any nausea, vomiting, but endorsed early satiety and no interest in eating. His protein status was extremely poor with an albumin of 1.4. He was also found with pancytopenia requiring G-CSF as well as transfusion of PRBC. Given his overall picture, discussions were held for palliative care. In family discussion on 03/22/2016, he and family agreed to home with hospice. The patient was therefore discharged on 03/23/2016 with hospice care. PHYSICAL EXAMINATION: Please refer to the note from 03/23/2016. DISCHARGE DISPOSITION: To home with hospice. DISCHARGE CONDITION: Stable. DISCHARGE DIAGNOSES: Failure to thrive, metastatic nonsmall cell lung carcinoma. DISCHARGE MEDICATIONS: Please refer to MAR. DISCHARGE INSTRUCTIONS: The patient will receive home hospice care. He will follow up with his PCP as needed. DOM GONZALEZ MD DR: UR/nts JOB#: [id number] / [id number] IVORY Herring MD, [place]
== END 2016-03-23 19:35 | disposition hospice, home (50) | DRG 808 ==
LOC: ER 14:46 → 5 NORTH 19:04
PROVIDERS: ADMIT Internal Medicine Hematology & Oncology; ATTEND Internal Medicine Hematology & Oncology
PROC: 30233N1 Transfusion of Nonautologous Red Blood Cells into Peripheral Vein, Percutaneous Approach (ICD-10-PCS; principal; 2016-03-21)
DX: D61.810 Antineoplastic chemotherapy induced pancytopenia (principal); E43 Unspecified severe protein-calorie malnutrition; J96.01 Acute respiratory failure with hypoxia; C34.92 Malignant neoplasm of unspecified part of left bronchus or lung; Z68.1 Body mass index [BMI] 19.9 or less, adult; E11.9 Type 2 diabetes mellitus without complications; E86.0 Dehydration; F32.9 Major depressive disorder, single episode, unspecified; I25.10 Atherosclerotic heart disease of native coronary artery without angina pectoris; R62.7 Adult failure to thrive; T45.1X5A Adverse effect of antineoplastic and immunosuppressive drugs, initial encounter; Z51.5 Encounter for palliative care; Z66 Do not resuscitate; Z85.46 Personal history of malignant neoplasm of prostate; Z86.73 Personal history of transient ischemic attack (TIA), and cerebral infarction without residual deficits; Z87.891 Personal history of nicotine dependence; Z95.5 Presence of coronary angioplasty implant and graft; Z92.21 Personal history of antineoplastic chemotherapy
CPT/HCPCS: 36415; 71010; 71275; 80048; 80053; 81001; 82947; 83605; 84484; 85007; 85027; 85610; 86850; 86900; 86901; 86920; 87641; 93005; 94250; 94640; 94760; 96365; J0690; J0696; J1442; J1650; J1815; J7030; J7620; P9016; Q9967; 99285-25